=== PATIENT | female | born 1985 ===

== ENCOUNTER 2019-07-08 23:35 | Inpatient (IN) | payer SELFPAY ==
[2019-07-08 23:30] VITALS: BP 123/74; PULSE 122; TEMP 98.1
--- NOTE | 2019-07-08 23:30 | NUR ---
Pt arrived via EMS from [facility]. Report received from JD Moya at [facility] and updated report from EMS. Pt transferred to bed wt standby assist and without complications. Oriented to room and bed. Call light within reach. Vital signs WNL. Plan of care reviewed with pt.
--- NOTE | 2019-07-08 23:40 | NUR ---
Pt s/p on 07/02. G5 L4 with indwelling catheter and a leg bag in place due to bladder injury during .
[2019-07-09] VITALS (29 sets, daily range): BP systolic 89–147; BP diastolic 52–89; PULSE 70–102; TEMP 97.8–98.1
--- NOTE | 2019-07-09 00:10 | NUR ---
Dr. Torres on the unit. Evaluating pt and labs from [facility].
[2019-07-09] MEDS ORDERED: EXCEDRIN1 TAB PO (00:17)
[2019-07-09] MEDS ORDERED: PERCOCET 325 MG1 TA2 PO (00:17)
--- NOTE | 2019-07-09 02:30 | NUR ---
Indwelling catheter leg bag changed to catheter bag with urometer.
[2019-07-09 10:07] LABS: BASO # 0.1 (0.0-0.2); BASO % 0.7 % (0.0-2.0); EOS # 0.3 (0.0-0.7); EOS % 3.4 % (0-4.0); GRAN % 51.9 % (42.2-75.2); LYMPH # 3.3 (1.2-3.4); MEAN CELL VOLUME 96 fl (80.0-100.0); MEAN CORPUSCULAR HGB CONC 32 g/dl (33.0-37.0); MEAN PLATELET VOLUME 8.4 fl (7.4-10.4); MONO # 0.9 (0.1-0.6); MONO % 8.9 % (1.7-9.3); PLATELET COUNT 494 K/mm3 (130-400); RED BLOOD COUNT 2.67 M/mm3 (4.10-5.30); REDCELL DISTRIBUTION WIDTH-CV 14.6 % (11.5-14.5)
[2019-07-09 10:11] LABS: HEMATOCRIT 25.6 % (37.0-47.0); HEMOGLOBIN 8.3 g/dl (12.5-16.0); MEAN CORPUSCULAR HEMOGLOBIN 31 pg (27.0-31.0)
[2019-07-09 10:24] LABS: ALBUMIN 3.1 gm/dL (3.5-5.0); BILIRUBIN,TOTAL 0.3 mg/dL (0.0-1.0); CALCIUM 7.1 mg/dL (8.4-10.2); CREATININE, serum 0.57 (0.52-1.25); POTASSIUM 3.5 mmol/L (3.4-5.0); TOTAL PROTEIN 6.2 gm/dL (6.4-8.2)
--- NOTE | 2019-07-09 10:49 | NUR ---
1000 MAG SULFATE OFF.
--- NOTE | 2019-07-09 16:52 | NUR ---
3239 ALL DISCHARGE INSTRUCTIONS GIVEN TO PATIENT AND BOYFRIEND. ENCOURAGED PATIENT TO CONTINUE TO TAKE BLOOD PRESSURE MEDICINE TWICE A DAY FOR [address] SAINZ STATES DIFFERENT. PORTER BAG SWITCHED TO LEG BAG PER PATIENT REQUEST AT THIS TIME.
== END 2019-07-09 17:30 | disposition home or self-care (01) | DRG 776 ==
LOC: LDR 23:35
PROVIDERS: ADMIT Obstetrics & Gynecology
DX: O14.95 Unspecified pre-eclampsia, complicating the puerperium (principal); Z48.816 Encounter for surgical aftercare following surgery on the genitourinary system; O99.345 Other mental disorders complicating the puerperium; Z88.8 Allergy status to other drugs, medicaments and biological substances
CPT/HCPCS: J3475